=== PATIENT | female | born 1940 | race Caucasian/White ===

== ENCOUNTER 2017-07-24 11:42 | Emergency (ER) | payer MEDICARE, OTHER ==
[~2017-07-24] VITALS: Ht 160 cm; Wt 65.9 kg
[~2017-07-24 11:42] MED LIST: ASPI81TA23 PO; BIOT1CAP2 PO; BYST2.5T2 PO; COQ1200C PO; DORZ2SOL EACH EYE; ESTR.625 PO; KETO0.5S2 RIGHT EYE; L-THPOW PO; PANT500T PO; POTA99TA PO; PRED1SUS RIGHT EYE; VITA2000 PO; VITA400C5 PO; VITA500T PO; VITATAB11 PO
[2017-07-24 11:45] VITALS: BP 168/83; PULSE 67; RESP 16; TEMP 98; O2SAT 97
--- NOTE | 2017-07-24 11:58 | PD ---
HPI Chief Complaint: Fall Time Seen by Provider: 11:45 Travel History International Travel<30 days: No Contact w/Intl Traveler<30days: No Traveled to known affect area: No History of Present Illness HPI The patient was seen and examined in the presence of the nurse. This patient complains of pain and injury from fall. Duration 1 hour. Severity is moderate. She tripped going up steps and fell face first into them. She hit her forehead and face. Has significant pain but denies LOC. Also complaining of some neck discomfort after the fall. No muscle weakness or sensory loss. Her other complaint is right knee pain. She has bruising and swelling there. Pain is worse with weightbearing. No alleviating factors. PFSH Past Medical History Hx Anticoagulant Therapy: Yes (BABY ASA DAILY) Cardiovascular Problems: Yes ?: Not LMP: HYSTERECTOMY Past Surgical History Hysterectomy: Yes Social History Alcohol Use: No Tobacco Use: No Substance Use: No Allergies-Medications (Allergen,Severity, Reaction): Coded Allergies: No Known Allergies (Verified Adverse Reaction, Unknown, 07/24/17) Reported Meds & Prescriptions Reported Meds & Active Scripts Active Percocet (Oxycodone-Acetaminophen) 5-325 mg Tab 1 Tab PO Q6H PRN Reported Yamile-C 500 mg Tablet (Ascorbate Calcium/Bioflavonoid) 500 Mg-200 Mg Tablet Unknown Dose Coq-10 (Coenzyme Q10 (Ubidecarenone)) 30 Mg Cap Unknown Dose Potassium Chloride ER (Potassium Chloride) 8 Meq Cap Unknown Dose PO BID Aspirin EC (Aspirin) 81 Mg Tabdr 81 Mg PO DAILY Vitamin B Complex (B-Complex Vitamins) 1 Tab 1 Tab PO DAILY Bystolic (Nebivolol) 2.5 Mg Tab 2.5 Mg PO DAILY L-Thyroxine (Bulk) (Levothyroxine (Bulk)) Bulk Pow 50 Mcg PO DAILY Premarin (Estrogens Conjugated) 0.625 Mg Tab 0.625 Mg PO DAILY Review of Systems General / Constitutional: No: Fever Eyes: No: Visual changes HENT: Positive: Headaches, Neck Pain Cardiovascular: No: Chest Pain or Discomfort Respiratory: No: Shortness of Breath Gastrointestinal: No: Abdominal Pain Genitourinary: No: Dysuria Musculoskeletal: Positive: Pain Skin: No Rash Neurologic: No: Weakness Psychiatric: No: Depression Endocrine: No: Polydipsia Hematologic/Lymphatic: No: Easy Bruising Physical Exam Narrative GENERAL: Well-nourished, well-developed patient in no apparent distress. SKIN: Focused skin assessment reveals no rash and nodules. Skin is Warm and dry. HEAD: Has right forehead swelling. Has swelling and bruising and abrasion around the right paravertebral region. Normocephalic. EYES: Pupils equal and round. No scleral icterus. No injection or drainage. ENT: No nasal bleeding or discharge. Mucous membranes pink and moist. NECK: Trachea midline. No JVD. No midline tenderness. No bruising or swelling CARDIOVASCULAR: Regular rate and rhythm. No murmur appreciated. RESPIRATORY: No accessory muscle use. Clear to auscultation. Breath sounds equal bilaterally. GASTROINTESTINAL: Abdomen soft, non-tender, nondistended. Hepatic and splenic margins not palpable. MUSCULOSKELETAL: Has bruising and swelling and tenderness of the right patella. No clubbing. No cyanosis. No edema. NEUROLOGICAL: Awake and alert. No obvious cranial nerve deficits. Motor grossly within normal limits. Normal speech. PSYCHIATRIC: Appropriate mood and affect; insight and judgment normal. Data Data Last Documented VS Vital Signs Date Time Temp Pulse Resp B/P (MAP) Pulse Ox O2 Delivery O2 Flow Rate FiO2 07/24/17 11:45 98.0 67 16 168/83 (111) 97 Orders Orders Knee, Complete (4vws) (07/24/17 ) Ct Brain W/O Iv Contrast(Rout) (07/24/17 ) Ct Facial Bones W/O Iv Cont (07/24/17 ) Ct Cerv Spine W/O Contrast (07/24/17 ) Support Splint (07/24/17 12:40) Crutches (07/24/17 14:09) MDM Medical Decision Making Medical Screen Exam Complete: Yes Emergency Medical Condition: Yes Medical Record Reviewed: Yes Differential Diagnosis Intracranial hemorrhage, facial bone fracture, patella fracture Narrative Course I have reviewed the patient's electronic medical record. Patient is neurologically intact Denies blood thinners Brain CT shows no intracranial hemorrhage or fracture Cervical spine CT shows arthritic change but no fracture Facial bone CT shows no acute fracture I reviewed her right knee x-rays shows nondisplaced fracture the right patella I placed her in an immobilizer and gave her crutches We discussed other options such as walker or wheelchair and she wants to do crutches Recommend orthopedic follow-up Pain medicine given Should ice and elevate Diagnosis Primary Impression: Right patella fracture Qualified Codes: S82.044A - Nondisplaced comminuted fracture of right patella , initial encounter for closed fracture Additional Impressions: Head injury due to trauma Qualified Codes: S09.90XA - Unspecified injury of head, initial encounter Contusion of face Qualified Codes: S00.83XA - Contusion of other part of head, initial encounter Cervical strain, acute Qualified Codes: S16.1XXA - Strain of muscle, fascia and tendon at neck level , initial encounter Additional Instructions: The patient was advised to follow up with orthopedist and return if they worsen. The patient was warned about potential sedation for the medications they will receive on prescription. Ice and elevate right knee Limit weightbearing Med/Other Pt SpecificInfo: Prescription(s) given Scripts Oxycodone-Acetaminophen (Percocet) 5-325 mg Tab 1 TAB PO Q6H Y for PAIN, #25 TAB 0 Refills Prov: Get Gomez MD 07/24/17 Disposition: 01 DISCHARGE HOME Condition: Stable Get Gomez MD Jul 24, 2017 11:58
[2017-07-24] MEDS ORDERED: ESTETAB3 (12:15)
[2017-07-24] MEDS ORDERED: POTA8CAP PO (12:15)
[2017-07-24] MEDS ORDERED: COQ-30CA2 (12:15)
--- NOTE | 2017-07-24 12:27 | RADRPT ---
EXAM DATE/TIME: 07/24/2017 11:57 [facility] COMPARISON: No previous studies available for comparison. INDICATIONS : Fall, right knee pain. MEDICAL HISTORY : None. SURGICAL HISTORY : None. ENCOUNTER: Initial ACUITY: 1 day PAIN SCORE: 4/10 LOCATION: Right knee FINDINGS: There are nondisplaced fractures involving the body of the patella. No distraction is demonstrated. T he distal femur, proximal tibia and fibula are intact. No joint dislocation. CONCLUSION: Nondisplaced fractures involving the body of the patella. Micheal Stephens MD on July 24, 2017 at 12:25 Board Certified Radiologist. This report was verified electronically.
--- NOTE | 2017-07-24 12:40 | RADRPT ---
EXAM DATE/TIME: 07/24/2017 12:13 [facility] COMPARISON: No previous studies available for comparison. INDICATIONS : Trauma. Fall. Right facial bruising, swelling and pain. RADIATION DOSE: 25.50 CTDIvol (mGy) MEDICAL HISTORY : Cardiovascular disease. SURGICAL HISTORY : Hysterectomy. ENCOUNTER: Initial ACUITY: 1 day PAIN SCORE: 5/10 LOCATION: Right facial TECHNIQUE: Volumetric scanning of the facial bones was performed. Using automated exposure control and adjustme nt of the mA and/or kV according to patient size, radiation dose was kept as low as reasonably achiev able to obtain optimal diagnostic quality images. DICOM format image data is available electronicall y for review and comparison. FINDINGS: ORBITS: The orbital and infraorbital osseous structures are intact. The retroconal structures have a normal configuration. No radiopaque foreign bodies are seen. NASAL BONE: The nasal bone and maxillary spine are intact ZYGOMATIC ARCHES: Symmetric without evidence of fracture. SINUSES: The maxillary, ethmoid and frontal sinuses are intact. No air-fluid levels seen. NASAL CAVITY: Nasal septal deviation to the right. SOFT TISSUES: Focal soft tissue swelling over the right for head. INTRACRANIAL: No intracranial air seen. CRIBIFORM PLATE: Grossly intact. CONCLUSION: 1. Focal soft tissue swelling over the right orbit. 2. No acute bony fracture. 3. Nasal septal deviation to the right. Micheal Stephens MD on July 24, 2017 at 12:37 Board Certified Radiologist. This report was verified electronically.
--- NOTE | 2017-07-24 12:43 | RADRPT ---
EXAM DATE/TIME: 07/24/2017 12:13 [facility] COMPARISON: No previous studies available for comparison. INDICATIONS : Trauma. Fall. RADIATION DOSE: 25.40 CTDIvol (mGy) MEDICAL HISTORY : Cardiovascular disease. SURGICAL HISTORY : Hysterectomy. ENCOUNTER: Initial ACUITY: 1 day PAIN SCALE: 2/10 LOCATION: neck TECHNIQUE: Volumetric scanning of the cervical spine was performed. Multiplanar reconstructions in the sagittal, coronal and oblique axial planes were performed. Using automated exposure control and adjustment o f the mA and/or kV according to patient size, radiation dose was kept as low as reasonably achievable to obtain optimal diagnostic quality images. DICOM format image data is available electronically f or review and comparison. FINDINGS: VERTEBRAE: Normal vertebral body height. No acute bony fracture. There are degenerative changes throughout the c ervical spine. There is mild anterior subluxation of C4 over C5 by 1-2 mm. There is disc space narrow ing at C5-6 and C6-7. C2-C3: The bony spinal canal is normal in size. No evidence of disc bulge or herniation. The neural forami na are bilaterally patent. C3-C4: The bony spinal canal is normal in size. No evidence of disc bulge or herniation. The neural forami na are bilaterally patent. C4-C5: The bony spinal canal is normal in size. No evidence of disc bulge or herniation. The neural forami na are bilaterally patent. C5-C6: The bony spinal canal is normal in size. No evidence of disc bulge or herniation. The neural forami na are bilaterally patent. C6-C7: The bony spinal canal is normal in size. No evidence of disc bulge or herniation. The neural forami na are bilaterally patent. C7-T1: The bony spinal canal is normal in size. No evidence of disc bulge or herniation. The neural forami na are bilaterally patent. CONCLUSION: 1. No acute bony fracture. 2. Moderate primary degenerative changes, disc degeneration disc space narrowing involving the mid to lower cervical spine. 3. Mild anterior subluxation of C4 over C5. Micheal Stephens MD on July 24, 2017 at 12:39 Board Certified Radiologist. This report was verified electronically.
--- NOTE | 2017-07-24 13:30 | RADRPT ---
EXAM DATE/TIME: 07/24/2017 12:13 [facility] COMPARISON: No previous studies available for comparison. INDICATIONS : Trauma. Fall. Right forehead pain and swelling. RADIATION DOSE: 57.85 CTDIvol (mGy) MEDICAL HISTORY : Cardiovascular disease. SURGICAL HISTORY : Hysterectomy. ENCOUNTER: Initial ACUITY: 1 day PAIN SCALE: 7/10 LOCATION: Right cranial TECHNIQUE: Multiple contiguous axial images were obtained of the head. Using automated exposure control and adj ustment of the mA and/or kV according to patient size, radiation dose was kept as low as reasonably a chievable to obtain optimal diagnostic quality images. DICOM format image data is available electro nically for review and comparison. FINDINGS: CEREBRUM: The ventricles are normal for age. No evidence of midline shift, mass lesion, hemorrhage or acute in farction. No extra-axial fluid collections are seen. There is a punctate from old lacunar infarct in the right basal ganglia. POSTERIOR FOSSA: The cerebellum and brainstem are intact. The 4th ventricle is midline. The cerebellopontine angle i s unremarkable. EXTRACRANIAL: The visualized portion of the orbits is intact. There is soft tissue swelling along the right frontal region. SKULL: The calvaria is intact. No evidence of skull fracture. CONCLUSION: 1. No acute intracranial abnormality identified. 2. Soft tissue swelling in the scalp above the right orbit. Adams Madrid MD on July 24, 2017 at 12:27 Board Certified Radiologist. This report was verified electronically.
[2017-07-24] MEDS ORDERED: PERC5TAB12 PO (14:08)
== END 2017-07-24 14:59 | disposition home or self-care (01) ==
LOC: PHED 11:42
DX: S82.044A Nondisplaced comminuted fracture of right patella, initial encounter for closed fracture (principal); S09.90XA Unspecified injury of head, initial encounter; S00.83XA Contusion of other part of head, initial encounter; S16.1XXA Strain of muscle, fascia and tendon at neck level, initial encounter; W10.9XXA Fall (on) (from) unspecified stairs and steps, initial encounter; Y93.01 Activity, walking, marching and hiking
CPT/HCPCS: 70450; 70486; 72125; 73564; 99285; E0113; L1830